=== PATIENT | female | born 1930 | race Caucasian/White ===

== ENCOUNTER 2017-03-29 10:01 | Outpatient (CLI) | payer MEDICARE, BC ==
[~2017-03-29] VITALS: Ht 157.5 cm; Wt 70.5 kg
[~2017-03-29 10:01] MED LIST: CALAN120 MG PO; CYCLOBENZAPRINE10 MG PO; FOLATE0.4 MG PO; HYDROCODONE-APA1 TAB PO; MOBIC7.5 MG PO; PRAVACHOL40 MG PO; STOOL SOFTENER240 MG PO
[2017-03-29] MEDS ORDERED: VITAMIN D2000 UNIT PO (10:32)
[2017-03-29] MEDS ORDERED: CALTRATE 600 M600 M1 PO (10:33)
[2017-03-29 10:34] VITALS: Ht 157.5 cm; Wt 70.5 kg
--- NOTE | 2017-03-29 10:41 | NUR ---
1041 INFORMATION PROVIDED ON PROLIA. V/S AND ASSESSMENT COMPLETED.
--- NOTE | 2017-03-29 10:57 | NUR ---
1056 TOLERATED INJECTION WITHOUT ANY ADVERSE EFFECTS. DISCHARGE INSTUCTIONS GIVEN AND TO HOME.
--- NOTE | 2017-03-29 10:57 | NUR ---
1051 PROLIA INJECTION GIVEN IN LEFT ARM SLOWLY VIA SUBCUTANEOUS.
== END 2017-03-29 10:56 | disposition home or self-care (01) ==
LOC: D.OPS 10:01
DX: M81.0 Age-related osteoporosis without current pathological fracture (principal)

== ENCOUNTER → 2017-10-11 12:32 | Outpatient (CLI) | payer MEDICARE, BC ==
[~2017-10-11] VITALS: Ht 157.5 cm; Wt 68.6 kg
[~2017-10-11 12:32] MED LIST changes: +CALTRATE 600 M600 M1 PO; +VITAMIN D2000 UNIT PO
[2017-10-11 13:53] VITALS: Ht 157.5 cm; Wt 68.6 kg
== END | disposition home or self-care (01) ==
LOC: D.OPS 12:32
DX: M81.0 Age-related osteoporosis without current pathological fracture (principal)

== ENCOUNTER 2018-04-11 13:04 | Outpatient (CLI) | payer MEDICARE, BC ==
[~2018-04-11] VITALS: Ht 157.5 cm; Wt 68.6 kg
[2018-04-11 13:48] VITALS: BP 129/50; Ht 157.5 cm; Wt 68.6 kg
== END 2018-04-11 14:25 | disposition home or self-care (01) ==
LOC: D.OPS 13:04
DX: M81.0 Age-related osteoporosis without current pathological fracture (principal)

== ENCOUNTER 2018-10-17 12:40 | Outpatient (CLI) | payer MEDICARE, BC ==
[~2018-10-17] VITALS: Ht 157.5 cm; Wt 69.5 kg
[2018-10-17 13:48] VITALS: BP 133/57; Ht 157.5 cm; Wt 69.5 kg
== END 2018-10-17 13:56 | disposition home or self-care (01) ==
LOC: D.OPS 12:40
DX: M81.0 Age-related osteoporosis without current pathological fracture (principal); Z01.812 Encounter for preprocedural laboratory examination

== ENCOUNTER → 2019-04-24 12:42 | Outpatient (CLI) | payer MEDICARE, BC ==
[~2019-04-24] VITALS: Ht 157.5 cm
[2019-04-24 13:59] VITALS: BP 139/53; Ht 157.5 cm
== END | disposition home or self-care (01) ==
LOC: D.OPS 12:42
PROVIDERS: ATTEND Family Medicine
DX: M18.0 Bilateral primary osteoarthritis of first carpometacarpal joints (principal)